=== PATIENT | male | born 1940 | race Caucasian/White ===

== ENCOUNTER 2018-05-26 08:18 | Emergency (ER) | payer MEDICARE, BC ==
[~2018-05-26] VITALS: Ht 175.3 cm; Wt 72.6 kg
[2018-05-26] MEDS ORDERED: VERA180ER PO (08:44)
[2018-05-26] MEDS ORDERED: Alphagan P5 ML BOTHEYES (08:45)
== END 2018-05-26 08:52 | disposition home or self-care (01) ==
LOC: ER 08:18
DX: J02.9 Acute pharyngitis, unspecified (principal)
CPT/HCPCS: 87081; 87430; 99283